=== PATIENT | male | born 1995 | race Caucasian/White ===

== ENCOUNTER 2018-12-15 14:30 | Outpatient (RCR) | payer BC, SELFPAY | END 2018-12-15 16:00 | disposition home or self-care (01) | LOC: PT.CARL 14:30 | PROVIDERS: Visit Provider Orthopaedic Surgery | DX: M21.42 Flat foot [pes planus] (acquired), left foot (principal) | CPT/HCPCS: 97010; 97014; 97033; 97035; 97110; 97112; 97116; 97140; 97163; 97164; G0283 ==

== ENCOUNTER 2023-08-07 18:31 | Emergency (ER) | payer BC, SELFPAY ==
[2023-08-07 18:40] VITALS: BP 150/94; PULSE 85; RESP 20; TEMP 36.6; O2SAT 97; BMI 21.4
--- NOTE | 2023-08-07 19:13 | XR_ITS ---
PROCEDURE INFORMATION: Exam: XR Cervical Spine Exam date and time: 08/07/2023 7:10 PM Age: 27 years old Clinical indication: Neck pain TECHNIQUE: Imaging protocol: Radiologic exam of the cervical spine. Views: 2 or 3 views. COMPARISON: No relevant prior studies available. FINDINGS: Bones/joints: No acute fracture. Normal alignment. Soft tissues: Unremarkable. IMPRESSION: No fracture. If neck pain persists, consider MRI for further evaluation.
--- NOTE | 2023-08-07 19:41 | ED_ITS ---
Discharge Plan Disposition Patient Disposition: Home, Self-Care Condition: Good Prescriptions Prescriptions: New naproxen 500 mg tablet 500 mg PO BID PRN (Reason: pain) Qty: 30 0RF cyclobenzaprine 10 mg tablet 10 mg PO TID PRN (Reason: muscle spasm) Qty: 30 0RF Referrals Follow up/Referrals: Jair Meyers MD [Primary Care Provider] - See instructions Activity Restrictions/Add. Instructions Additional Instructions/Restrictions: Neck x-ray was normal. Take medication as prescribed. If symptoms persist or worsen, follow up with PCP. Clinical Impressions Clinical Impression: Muscle spasm of shoulder region Instructions Patient Instructions: DI for Muscle Spasm Discharge ED Provider: Dorene Garcia [facility] General Stated complaint: shoulder pain Mode of Arrival: Ambulatory Source of Information: Patient and Parent(s) Limitations: No Limitations Time Seen by Provider: 08/07/23 19:28 Description of Symptoms (Recalled from Triage Doc. by RN): PATIENT C/O BURNING PAIN TO RIGHT SHOULDER BLADE AREA, BACK, AND RIGHT CHEST THAT HAS BEEN GOING ON FOR APPROX 3 WEEKS. PATIENT ALSO REPORTS A TINGLING FEELING TO RIGHT ELBOW AND FINGERS. NO KNOWN INJURY. 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 PATIENT ALSO REPORTS A TINGLING FEELING TO RIGHT ELBOW AND FINGERS. NO KNOWN INJURY. PATIENT STATES HE DOES WORKOUT. Pt further reports that he started working at [email or web address] 6 months ago and works with his hands above his head. He states that the burning in that shoulder feels like a hot poker to that site and the pain will radiate to the elbow. Related Data Previous Rx's Medication Instructions Recorded cyclobenzaprine 10 mg tablet 10 mg PO TID PRN muscle spasm #30 08/07/23 tabs naproxen 500 mg tablet 500 mg PO BID PRN pain #30 tabs 08/07/23 Allergies Allergy/AdvReac Type Severity Reaction Status Date / Time No Known Allergies Allergy Verified 09/03/21 13:42 Worker's Comp Is this a Worker's Comp case?: No [facility] Disclaimer: The information contained in this section may have been updated after the patient was seen, as this information can be updated by other users. Surgical History (Updated 08/07/23 @ 18:56 by Constance Jaime RN) History of foot surgery Social History Smoking Status: Never smoker alcohol intake: current alcohol intake frequency: holidays/special occasions only substance use type: denies use current occupational status: employed Travel in the last 8 weeks: None household members: family housing: house ROS Obtained: Yes All systems reviewed & no additional complaints except as documented Constitutional Constitutional: Reports system reviewed and no additional complaints, except as documented Eyes Eyes: Reports system reviewed and no additional complaints, except as documented ENT Ears, Nose, Mouth, and Throat: Reports system reviewed and no additional complaints, except as documented Cardiovascular Cardiovascular: Reports system reviewed and no additional complaints, except as documented Respiratory Respiratory: Reports system reviewed and no additional complaints, except as documented Gastrointestinal Gastrointestingal: Reports system reviewed and no additional complaints, except as documented Genitourinary Male Genitourinary: Reports system reviewed and no additional complaints, except as documented Musculoskeletal Musculoskeletal: Reports system reviewed and no additional complaints, except as documented, Reports back pain, Reports muscle cramps, Reports myalgias and Reports stiffness Integumentary/Breasts Skin/Breast: Reports system reviewed and no additional complaints, except as documented Neurologic Neurologic: Reports system reviewed and no additional complaints, except as docu mented Endocrine Endocrine: Reports system reviewed and no additional complaints, except as documented Hematologic/Lymphatic Henatologic/Lymphatic: Reports system reviewed and no additional complaints, except as documented Allergic/Immunologic Allergic/Immunologic: Reports system reviewed and no additional complaints, except as documented Physical Exam General General appearance: alert and in no apparent distress Head Head exam: atraumatic and normocephalic Eye Eye exam: Present normal appearance ENT ENT exam: Present normal exam and normal oropharynx Neck Neck exam: Present normal inspection and full ROM; Absent tenderness or lymphadenopathy Chest Chest inspection: Present normal inspection and symmetric chest wall rise Respiratory Respiratory exam: Present normal lung sounds bilaterally Cardiovascular Cardiovascular exam: Present regular rate, normal rhythm and normal heart sounds Abdominal Exam Abdominal exam: Present soft and normal bowel sounds Extremities Exam Extremities exam: Present normal inspection and normal capillary refill Back Exam Back exam: Present tenderness and muscle spasm Comment: knotted muscled noted to the side of scapula. Neurological Exam Neurological exam: Present alert and oriented X3 Psychiatric Psychiatric exam: Present normal affect and normal mood Skin Skin exam: Present warm, dry and intact Lymphatic Lymphatic Findings: no adenopathy Medical Decision Making Trino Inquiry Pt receiving controlled substance: No Trino was queried for this patient: No Vital Signs: 08/07/23 18:40 Temperature 97.9 F Temperature Source Oral Pulse Rate [Left Brachial] 85 Respiratory Rate 20 Blood Pressure [Left Arm] 150/94 H Blood Pressure Mean [Left Arm] 112 Blood Pressure Source [Left Arm] Automatic Cuff Blood Pressure Position [Left Arm] Sitting 02 Sat by Pulse Oximetry 97 Oxygen Delivery Method Room Air Orders (Tests/Meds): ORDERS Category Date Time Status C-spine XR 2 views [XR cervical spine 2V] Stat Exams 08/07/23 19:13 Taken Radiology Data #1: Image(s): C-Spine Image Reviewed: Yes I reviewed the patient's radiology results and Yes I have reviewed radiologist's interpretation FINDINGS: Bones/joints: No acute fracture. Normal alignment. Soft tissues: Unremarkable. IMPRESSION: No fracture. If neck pain persists, consider MRI for further evaluation.
[2023-08-07 19:44] VITALS: BP 150/94; PULSE 85; RESP 20; TEMP 36.6; O2SAT 97
== END 2023-08-07 19:50 | disposition home or self-care (01) ==
PROVIDERS: Emergency Provider Nurse Practitioner Family; PCP Family Medicine
DX: M25.511 Pain in right shoulder (principal); M62.838 Other muscle spasm; R20.2 Paresthesia of skin
CPT/HCPCS: 72040; 99204; 99212; 99214; G0463

== ENCOUNTER 2023-09-25 16:52 | Outpatient (CLI) | payer BC, SELFPAY ==
[2023-09-25 17:20] LABS: Basophils # 0.1 K/mm3 (0-0.2); Basophils % 0.8 % (0.1-2.0); Eosinophils # 0.1 K/mm3 (0.0-0.4); Eosinophils % 1.2 % (0.1-12.0); Hematocrit 45.8 % (42.0-52.0); Lymphocytes # 1.9 K/mm3 (0.7-4.5); Lymphocytes % 29.1 % (10-50); Mean Corpuscular HGB Conc 32.7 g/dL (31.8-35.4); Mean Corpuscular Hemoglobin 31.8 pg (27.0-31.2); Mean Corpuscular Volume 97.2 fl (80-94); Mean Platelet Volume 8.6 fl (7.4-10.4); Monocytes # 0.5 K/mm3 (0.1-1.0); Neutrophils # 4.1 K/mm3 (1.8-7.8); Neutrophils % 61.9 % (37.0-80.0); Platelet Count 255 K/mm3 (142-424); Red Blood Count 4.71 M/mm3 (4.60-6.20); Red Cell Distribution Width 13.9 % (11.5-17.5); White Blood Count 6.7 K/mm3 (4.8-10.8)
[2023-09-25 18:05] LABS: Alanine Aminotransferase 21 U/L (12-78); Albumin Level 4.3 g/dl (3.5-5.0); Albumin/Globulin Ratio 1.7 (1.1-1.8); Alkaline Phosphatase 76 U/L (38-126); Aspartate Amino Transferase 25 U/L (17-59); Bilirubin,Total 0.7 mg/dl (0.2-1.3); Blood Urea Nitrogen 16 mg/dl (9-20); Calcium 10.1 mg/dl (8.4-10.2); Carbon Dioxide 29 mmol/L (22.0-30.0); Chloride 104 mmol/L (98-107); Chol/HDL Ratio 3.1 (1-3.5); Cholesterol 101 mg/dl (140-200); Estimated Glomerular Filt Rate 117 ml/min (>60); GFR (African American) 141 ML/MIN (>60); Globulin 2.6 g/dL (1.3-3.2); Glucose 93 mg/dl (74-100); HDL Cholesterol 33 mg/dl (40-60); Lipase 61 U/L (23-300); Sodium 140 mmol/L (136-145); Total Protein,Serum 6.9 g/dl (6.3-8.2); Triglycerides 59 mg/dl (30-150); VLDL Cholesterol 12 mg/dL (0-40)
[2023-09-25 18:21] LABS: 25-OH Vitamin D, Total 30.1 ng/mL (30-100)
[2023-09-25 18:34] LABS: Thyroid Stimulating Hormone 3.02 uIU/mL (0.465-4.68)
== END 2023-09-25 23:59 | disposition home or self-care (01) ==
LOC: LAB 16:54
PROVIDERS: PCP Internal Medicine Adolescent Medicine; Visit Provider Family Medicine
DX: R53.83 Other fatigue (principal); R10.9 Unspecified abdominal pain; Z00.00 Encounter for general adult medical examination without abnormal findings
CPT/HCPCS: 80050; 80053; 80061; 82306; 83690; 84443; 85025